=== PATIENT | female | born 1990 | race Asian ===

== ENCOUNTER 2016-09-19 10:07 | Emergency (ER) | payer MEDICAID ==
[~2016-09-19] VITALS: Ht 160 cm; Wt 96.4 kg
[2016-09-19] MEDS ORDERED: PREN-3 PO (10:40)
[2016-09-19 11:13] LABS: BLOOD UREA NITROGEN 9 mg/dL (7-18)
[2016-09-19 12:11] VITALS: BP 126/84
== END 2016-09-19 12:13 | disposition home or self-care (01) ==
LOC: ED 11:30
DX: O20.0 Threatened abortion (principal); Z3A.17 17 weeks gestation of pregnancy
CPT/HCPCS: 36415; 76805; 80048; 81001; 82040; 84702; 85025; 87077; 87086; 87186; 99285

== ENCOUNTER → 2019-07-11 | Outpatient (CLI) | payer OTHER ==
[~2019-07-11] MED LIST: PREN-3 PO
== END | disposition home or self-care (01) ==
LOC: RAD 07:35
PROVIDERS: ATTEND Student in an Organized Health Care Education/Training Program
DX: K21.9 Gastro-esophageal reflux disease without esophagitis (principal)
CPT/HCPCS: 74240

== ENCOUNTER 2019-09-26 07:57 | Observation (INO) | payer OTHER, MEDICAID ==
[~2019-09-26] VITALS: Ht 160 cm; Wt 118.9 kg
[2019-09-26] MEDS ORDERED: NONE PER PT (08:51)
[2019-09-26 09:13] LABS: BASOPHILS # (AUTO) 0.08 x10^3/uL (0-0.1); BASOPHILS % (AUTO) 1 % (0-1); EOSINOPHILS # (AUTO) 0.17 x10^3/uL (0-0.4); EOSINOPHILS % (AUTO) 2 % (1-7); LYMPHOCYTES # (AUTO) 2.46 x10^3/uL (1-3.4); LYMPHOCYTES % (AUTO) 29 % (22-44); MD NO; MEAN CORPUSCULAR HEMOGLOBIN 30.1 pg (27.0-34.8); MEAN CORPUSCULAR HGB CONC 33.1 g/dL (32.4-35.8); MEAN CORPUSCULAR VOLUME 90.7 fL (80-100); MEAN PLATELET VOLUME 9.8 fL (7.4-10.4); MONOCYTES # (AUTO) 0.46 x10^3/uL (0.2-0.8); MONOCYTES % (AUTO) 6 % (2-9); NEUTROPHILS % (AUTO) 62 % (42-75); PLATELET COUNT 261 x10^3/uL (130-400); RED BLOOD COUNT 4.72 x10^6/uL (3.82-5.3); RED CELL DISTRIBUTION WIDTH 13.8 % (9.6-15.2)
[2019-09-26 09:46] LABS: CHLORIDE 110 mmol/L (98-107)
[2019-09-26 10:19] LABS: % IRON SATURATION 24 % (20-55); ALANINE AMINOTRANSFERASE 24 U/L (12-78); ALBUMIN 3.6 g/dL (3.4-5.0); ALKALINE PHOSPHATASE 73 U/L (45-117); ANION GAP 5 mmol/L (5-15); BILIRUBIN,TOTAL 0.2 mg/dL (0.2-1.0); CALCIUM 9.1 mg/dL (8.5-10.1); CHOLESTEROL, TOTAL 171 mg/dL (140-239); CREATININE 0.84 mg/dL (0.55-1.02); HDL CHOL % 25 % (28-40); HDL CHOLESTEROL (DIRECT) 43 mg/dL (40-60); IRON LEVEL 76 mcg/dL (50-170); LDL CHOLESTEROL,CALCULATED 112 mg/dL (54-169); LDL/HDL RATIO 2.6 (0.5-3.0); TOTAL IRON BINDING CAPACITY 317 mcg/dL (250-450); TOTAL PROTEIN 7.5 g/dL (6.4-8.2); TRANSFERRIN 246 mg/dL (200-360); TRIGLYCERIDES 82 mg/dL (50-200); VLDL CHOLESTEROL 16 mg/dL (0-25)
[2019-09-26 12:19] LABS: PREALBUMIN 22.1 mg/dL (20.0-40.0)
[2019-09-30] MEDS ORDERED: BUPIVACAINE/PF-EPI 0.5% 1:200K ONE (06:02)
[2019-09-30] MEDS ORDERED: LIDOCAINE-MPF 1%, 2ML INFIL STA (06:21)
[2019-09-30] MEDS ORDERED: CHLORHEXIDINE 15 ML UDC MM STA (06:21)
[2019-09-30] MEDS ORDERED: LACTATED RINGERS 1,000 ML IV ONE (06:21)
[2019-09-30] MEDS ORDERED: MIDAZOLAM 1 MG/ML, 2ML ONE ×2 (06:49→08:52)
[2019-09-30] MEDS ORDERED: FENTANYL PF 250 MCG/5ML ONE ×2 (06:49→07:38)
[2019-09-30] MEDS ORDERED: ROCURONIUM 10MG/ML,5ML ONE (06:50)
[2019-09-30] MEDS ORDERED: PROPOFOL 10 MG/ML, 20ML ONE (06:50)
[2019-09-30] MEDS ORDERED: DEXAMETHASONE 4 MG/ML, 1ML ONE ×2 (06:51→07:06)
[2019-09-30 07:04] LABS: HCG UR SG 1.017 (1.003-1.030)
[2019-09-30] MEDS ORDERED: CEFOTETAN PMX 2GM/50ML 50 ML IVPB ONE (07:06)
[2019-09-30] MEDS ORDERED: SUGAMMADEX 200 MG/2 ML IVPush ONE (07:06)
[2019-09-30] MEDS ORDERED: ONDANSETRON 2MG/ML, 2ML ONE (07:06)
[2019-09-30] MEDS ORDERED: LABETALOL 5MG/ML, 20ML IV PRN (08:00)
[2019-09-30] MEDS ORDERED: EPHEDRINE 50 MG/ML, 1ML IVPush PRN (08:00)
[2019-09-30] MEDS ORDERED: OXYcodone 5 MG/5 ML ORAL.SOL UDC PO PRN (08:00)
[2019-09-30] MEDS ORDERED: FENTANYL PF 100 MCG/2ML IV PRN (08:00)
[2019-09-30] MEDS ORDERED: MEPERIDINE/PF 25MG/0.5ML IVPush PRN (08:00)
[2019-09-30] MEDS ORDERED: ALBUTEROL SULFATE 2.5 MG/3 ML NPPB PRN (08:00)
[2019-09-30] MEDS ORDERED: PROMETHAZINE 12.5 MG SUPP PR PRN (08:00)
[2019-09-30] MEDS ORDERED: hydrALAzine 20 MG/ML, 1ML IV PRN (08:00)
[2019-09-30] MEDS ORDERED: HYDROmorphone 1 MG/ML, 1ML INJ IVPush PRN (08:00)
[2019-09-30] MEDS ORDERED: DIAZEPAM 5 MG/ML, 2ML IVPush PRN (08:00)
[2019-09-30] MEDS ORDERED: PROMETHAZINE 25 MG/ML, 1ML IVPush PRN (08:00)
[2019-09-30] MEDS ORDERED: ONDANSETRON 2MG/ML, 2ML IVPush PRN (08:00)
[2019-09-30] MEDS ORDERED: DIPHENHYDRAMINE 50 MG/ML, 1ML IVPush PRN (08:00)
[2019-09-30] MEDS ORDERED: MIDAZOLAM 1 MG/ML, 2ML IV PRN (08:00)
[2019-09-30] MEDS ORDERED: FENTANYL PF 100 MCG/2ML ONE (08:51)
[2019-09-30] MEDS ORDERED: MEPERIDINE/PF 25MG/ML,1ML ONE (08:51)
[2019-09-30] MEDS ORDERED: LACTATED RINGERS 500 ML IVBOLUS PRN (11:30)
[2019-09-30] MEDS ORDERED: DIPHENHYDRAMINE 25 MG CAPSULE PO PRN (11:30)
[2019-09-30] MEDS ORDERED: DIPHENHYDRAMINE 50 MG/ML, 1ML IV PRN (11:30)
[2019-09-30] MEDS ORDERED: LORazepam 2 MG/ML, 1ML IV PRN (11:30)
[2019-09-30] MEDS ORDERED: PHENOL THROAT SPRAY BOTTLE MM PRN (11:30)
[2019-09-30] MEDS: POTASSIUM CHLORIDE 20 MEQ in LACTATED RINGERS 1,000 ML IV SCH (12:39)
[2019-09-30] MEDS: ONDANSETRON 2MG/ML, 2ML IV PRN (12:39)
[2019-09-30] MEDS ORDERED: PROMETHAZINE 25 MG/ML, 1ML IM PRN (16:30)
[2019-09-30 18:29] VITALS: BP 111/74
[2019-09-30] MEDS ORDERED: ENOXAPARIN 40 MG/0.4 ML SQ SCH (19:00)
[2019-09-30] MEDS: HYDROcodone/APAP 7.5-325MG/15ML UDC PO PRN ×2 (19:42→23:26)
[2019-10-01 00:43] VITALS: BP 123/76
[2019-10-01] MEDS: POTASSIUM CHLORIDE 20 MEQ in LACTATED RINGERS 1,000 ML IV SCH (01:37)
[2019-10-01 04:05] VITALS: BP 100/66
[2019-10-01 05:21] LABS: BASOPHILS # (AUTO) 0.05 x10^3/uL (0-0.1); BASOPHILS % (AUTO) 1 % (0-1); EOSINOPHILS # (AUTO) 0.01 x10^3/uL (0-0.4); EOSINOPHILS % (AUTO) 0 % (1-7); LYMPHOCYTES # (AUTO) 1.77 x10^3/uL (1-3.4); LYMPHOCYTES % (AUTO) 17 % (22-44); MD NO; MEAN CORPUSCULAR HGB CONC 33.2 g/dL (32.4-35.8); MEAN CORPUSCULAR VOLUME 90.4 fL (80-100); MEAN PLATELET VOLUME 10.1 fL (7.4-10.4); MONOCYTES # (AUTO) 0.91 x10^3/uL (0.2-0.8); MONOCYTES % (AUTO) 9 % (2-9); NEUTROPHILS # (AUTO) 7.97 x10^3/uL (1.8-6.8); NEUTROPHILS % (AUTO) 75 % (42-75); PLATELET COUNT 213 x10^3/uL (130-400); RED BLOOD COUNT 4.14 x10^6/uL (3.82-5.3); RED CELL DISTRIBUTION WIDTH 13.6 % (9.6-15.2)
[2019-10-01 05:25] LABS: ANION GAP 6 mmol/L (5-15); CALCIUM 8.1 mg/dL (8.5-10.1); CHLORIDE 110 mmol/L (98-107); CREATININE 0.73 mg/dL (0.55-1.02)
[2019-10-01] MEDS: ONDANSETRON 2MG/ML, 2ML IV PRN (06:47)
[2019-10-01] MEDS: HYDROcodone/APAP 7.5-325MG/15ML UDC PO PRN (06:47)
[2019-10-01 07:48] VITALS: BP 103/67
[2019-10-01] MEDS ORDERED: HYDR15SO3 PO (10:27)
[2019-10-01] MEDS ORDERED: CELE200C PO (10:28)
[2019-10-01] MEDS ORDERED: POLY17PO5 PO (10:29)
[2019-10-01] MEDS ORDERED: OMEP-110 PO (10:30)
== END 2019-10-01 10:54 | disposition home or self-care (01) ==
LOC: ORIP 07:57 → UNDOADMIN 07:57 → ORIP 09-30 05:38 → INTOOBSV 09-30 05:38 → 4NE 09-30 10:57 → DCLOUNGE 10-01 10:44
PROVIDERS: ADMIT Student in an Organized Health Care Education/Training Program; ATTEND Student in an Organized Health Care Education/Training Program
DX: Z03.818 Encounter for observation for suspected exposure to other biological agents ruled out (principal); E66.01 Morbid (severe) obesity due to excess calories; Z68.41 Body mass index [BMI] 40.0-44.9, adult; K21.9 Gastro-esophageal reflux disease without esophagitis; G43.909 Migraine, unspecified, not intractable, without status migrainosus; Z79.899 Other long term (current) drug therapy; Z82.49 Family history of ischemic heart disease and other diseases of the circulatory system
CPT/HCPCS: 36415; 43775; 71046; 80048; 80053; 80061; 81025; 82040; 82306; 82607; 82728; 83540; 83550; 83970; 84134; 84425; 84466; 85025; 87635; 88307; 93005; 96361; 96372; 96374; 96376; G0378; J1100; J1650; J2175; J2405; J2550; J2704; J3010; J3480; J3490; J7120; J2250